=== PATIENT | female | born 1945 | race American Indian/Alaskan Native ===

== ENCOUNTER 2017-06-03 13:26 | Outpatient (CLI) | payer MEDICARE ==
--- NOTE | 2017-06-03 14:59 | Ultrasound Report ---
RIGHT DIGITAL DIAGNOSTIC MAMMOGRAM with CAD and RIGHT BREAST ULTRASOUND: 06/03/17 13:26:00 CLINICAL: Breast cancer survivor status post left mastectomy and right reduction mammoplasty in left procedure. Right breast lump felt by her doctor. She denies feeling a lump. COMPARISON:06/07/16 and 01/05/15 mammograms FINDINGS: The breast is heterogeneously dense with a stable fibroglandular pattern. Stable central architectural distortion with no mass. Few scattered benign calcifications.No suspicious calcifications. Ultrasound of the right breast (including all four quadrants and the retroareolar area) was performed and demonstrated normal fibroglandular and fatty structures. No mass, cyst or shadowing. IMPRESSION: No mammographic evidence of malignancy and negative right breast ultrasound.Stable postsurgical changes in the right breast. BI-RADS CATEGORY: 2 - - Benign RECOMMENDATION: Clinical followup and routine mammographic screening in one year. ACR BI-RADS MAMMOGRAPHIC CODES: 0 = Needs additional imaging evaluation; 1 = Negative; 2 = Benign; 3 = Probably benign; 4 = Suspicious; 5 = Malignant; 6 = Known biopsy-proven malignancy COMMENT: 1. Dense breast tissue, i.e., adenosis, fibrocystic changes, etc., may obscure an underlying neoplasm. 2. Approximately 10% of cancers are not detected with mammography. 3. A negative mammography report should not delay biopsy if a clinically suspicious mass is present. COMMENT: Patient follow-up letters are generated by our [employer] application.
== END 2017-06-03 13:27 | disposition home or self-care (01) ==
LOC: SPVWC 13:26
PROVIDERS: ATTEND Surgery
DX: N63.0 Unspecified lump in unspecified breast (principal); R92.1 Mammographic calcification found on diagnostic imaging of breast; Z90.12 Acquired absence of left breast and nipple; Z98.890 Other specified postprocedural states
CPT/HCPCS: 76641; G0206

== ENCOUNTER 2018-02-11 10:01 | Outpatient (CLI) | payer MEDICARE ==
--- NOTE | 2018-02-11 11:57 | Mammography Report ---
BONE DEXA:02/11/18 10:01:00 CLINICAL: Postmenopausal and history of left breast cancer. COMPARISON: 08/01/14 TECHNIQUE: Two site bone DEXA performed on an Hologic scanner. FINDINGS: The average BMD of the lumbar spine L1-L4 is 1.036g/cm squared with a T-score of -0.1 and a Z-score of +1.5. This compares to 1.077g/cm squared on the last exam and represents a -3.8% change from the previous baseline. The average BMD of the left hip is 1.031g/cm squared with a T-score of plus or 0.7 and a Z-score of +1.2. This compares to 1.075g/cm squared on the last exam and represents a -4.1% change from the previous baseline. IMPRESSION: 1. WHO classification: Normal with average fracture risk based on spine and left hip measurements. 2. A moderate decline in both spine and left hip BMD compared to the previous exam. RECOMMENDATION: Clinical correlation and routine screening. DEFINITIONS: BMD = Bone Mineral Density T-score = BMD related to mean peak bone mass of young adult (mean expressed in Standard Deviation) Z-score = Age matched BMD expressed in SD World Health Organization (WHO) Diagnostic Criteria Normal T-score > -1 SD Osteopenia T-score between -1 and -2.4 SD Osteoporosis T-score -2.5 SD or below NOTE: BMD is not the only risk factor for fracture; also consider factors such as the patient's age, risk of falling, previous osteoporotic fracture, family history of osteoporotic fractures, current smoker, and low body weight. Z-scores are not calculated if >80 years of age.
== END 2018-02-11 10:02 | disposition home or self-care (01) ==
LOC: MAMMO 10:01
PROVIDERS: ATTEND Internal Medicine Hematology & Oncology
DX: C50.919 Malignant neoplasm of unspecified site of unspecified female breast (principal); E66.3 Overweight; F17.210 Nicotine dependence, cigarettes, uncomplicated; Z78.0 Asymptomatic menopausal state
CPT/HCPCS: 77080

== ENCOUNTER 2018-06-09 09:58 | Outpatient (CLI) | payer MEDICARE ==
--- NOTE | 2018-06-09 13:52 | Ultrasound Report ---
RIGHT DIGITAL DIAGNOSTIC MAMMOGRAM WITH CAD: 06/09/18 09:58:00 CLINICAL: Breast cancer survivor status post left mastectomy and status post right reduction mammoplasty with a lift procedure. COMPARISON:06/03/17 FINDINGS: The breast is heterogeneously dense with stable central postsurgical scar.A few scattered benign calcifications. No mass, suspicious architectural distortion or suspicious calcifications. Ultrasound of the right breast (including all four quadrants and the retroareolar area) was performed and demonstrated normal fibroglandular and fatty structures. No mass, cyst or shadowing. IMPRESSION: No mammographic evidence of malignancy. BI-RADS CATEGORY: 2 -- Benign RECOMMENDATION: Routine mammographic screening in one year. ACR BI-RADS MAMMOGRAPHIC CODES: 0 = Needs additional imaging evaluation; 1 = Negative; 2 = Benign; 3 = Probably benign; 4 = Suspicious; 5 = Malignant; 6 = Known biopsy-proven malignancy COMMENT: 1. Dense breast tissue, i.e., adenosis, fibrocystic changes, etc., may obscure an underlying neoplasm. 2. Approximately 10% of cancers are not detected with mammography. 3. A negative mammography report should not delay biopsy if a clinically suspicious mass is present. COMMENT: Patient follow-up letters are generated via our [employer] Nurse Navigator application.
== END 2018-06-09 09:59 | disposition home or self-care (01) ==
LOC: SPVWC 09:58
PROVIDERS: ATTEND Surgery
DX: R92.8 Other abnormal and inconclusive findings on diagnostic imaging of breast (principal); Z85.3 Personal history of malignant neoplasm of breast

== ENCOUNTER 2020-11-29 10:23 | Outpatient (CLI) | payer MEDICARE ==
--- NOTE | 2020-11-29 12:43 | Mammography Report ---
DIGITAL SCREENING MAMMOGRAM WITH CAD, 11/29/2020 INDICATION: Routine screening mammography. TECHNIQUE: Digital right 2D mammography was obtained in the craniocaudal and mediolateral oblique pr ojections. This examination was interpreted with the benefit of Computer-Aided Detection analysis. COMPARISON: 06/09/2018, 11/09/2019, 06/03/2017. FINDINGS: Breast Density: The breasts are heterogeneously dense, which may obscure small masses. There is no evidence of dominant mass, suspicious calcifications or architectural distortion in the r ight breast. IMPRESSION: Follow up recommendation: Routine yearly BI-RADS Category 1: Negative. A "normal" or negative report should not discourage follow up or biopsy of a clinically significant f inding. A written summary of these findings will be mailed to the patient. The patient will be entered into a mammography reporting system which will generate a reminder letter for the patient's next appointmen t at the appropriate interval. The [employer] recommends yearly mammograms starting at age 40 and continuing as l babar as a woman is in good health. Breast MRI is recommended for women with an approximate 20-25% or greater lifetime risk of breast cancer, including women with a strong family history of breast or ova tyler cancer or who have been treated for Hodgkin's disease. Signer Name: Luis Jackson MD Signed: 11/29/2020 12:38 PM Workstation Name: [id number]
== END 2020-11-29 10:24 | disposition home or self-care (01) ==
LOC: SPVWC 10:23
PROVIDERS: ATTEND Surgery
DX: Z12.31 Encounter for screening mammogram for malignant neoplasm of breast (principal); N64.89 Other specified disorders of breast